=== PATIENT | female | born 1950 | race Caucasian/White ===

== ENCOUNTER 2021-01-15 14:58 | Emergency (ER) | payer MEDICARE ==
[2021-01-15 16:22] LABS: HEMOGLOBIN 13.7 gm/dl (12.3-15.3); RED BLOOD COUNT 4.81 M/UL (4.00-5.10); WHITE BLOOD COUNT 5.3 K/UL (4.5-11.0)
[2021-01-15 16:43] LABS: BUN/CREATININE RATIO 25 (0-10)
[2021-01-15] MEDS ORDERED: ZOFRAN ODT 4 MG4 MG SL (16:55)
== END 2021-01-15 18:53 | disposition home or self-care (01) ==
LOC: ER1 14:58
PROVIDERS: Physician Assistant
DX: U07.1 COVID-19 (principal); E86.0 Dehydration; R11.10 Vomiting, unspecified; R19.7 Diarrhea, unspecified
CPT/HCPCS: 71045; 80053; 85025; 96374; 99284; J2405; J7030